=== PATIENT | male | born 1965 | race Hispanic/Latino ===

== ENCOUNTER 2021-05-02 11:43 | Emergency (ER) | payer BC ==
[~2021-05-02] VITALS: Ht 177.8 cm; Wt 111.2 kg
[2021-05-02] MEDS ORDERED: BENICAR20 MG PO (11:56)
[2021-05-02] MEDS ORDERED: MECLIZINE HCL 12.5 MG TAB PO ONE (12:30)
[2021-05-02] MEDS ORDERED: MECLIZINE HCL 12.5 MG TAB ONE (12:37)
[2021-05-02] MEDS ORDERED: MECLIZINE HCL12.5 MG PO (15:14)
[2021-05-02 15:26] VITALS: BP 128/94
== END 2021-05-02 15:34 | disposition home or self-care (01) ==
LOC: FSED 12:05
DX: R07.89 Other chest pain (principal); R42 Dizziness and giddiness; I10 Essential (primary) hypertension; R91.1 Solitary pulmonary nodule
CPT/HCPCS: 70450; 71046; 80053; 81003; 82553; 84484; 85025; 85379; 93005; 99284; J8597